=== PATIENT | female | born 1985 | race Caucasian/White ===

== ENCOUNTER 2024-04-07 01:49 | Emergency (ER) | payer SELFPAY ==
--- NOTE | 2024-04-07 02:04 | ERPHSYRPT ---
- History of Present Illness Time Seen by Provider: 04/07/24 01:53 Historian: patient Exam Limitations: no limitations Physician History: For the past 3.5 hours pt has had constant lower mid chest pain/epigastric pain radiating to the back up to 8/10 in severity with nausea; denies vomiting & fever. Aspirin Treatment Today: 81 mg x 4, provided by ED Allergies/Adverse Reactions: amoxicillin Allergy (Mild, Verified 05/09/14 09:28) Hives Home Medications: No Reportable Medications [No Reported Medications] 04/07/24 [History] Hx Tetanus, Diphtheria Vaccination/Date Given: No Hx Influenza Vaccination/Date Given: No Hx Pneumococcal Vaccination/Date Given: No - Review of Systems Constitutional: No Fever Cardiac: Chest Pain Abdominal/Gastrointestinal: Abdominal Pain, Nausea, No Vomiting - Past Medical History Pertinent Past Medical History: No Neurological History: No Pertinent History ENT History: No Pertinent History Cardiac History: No Pertinent History Respiratory History: No Pertinent History Endocrine Medical History: No Pertinent History Musculoskeletal History: No Pertinent History GI Medical History: No Pertinent History History: No Pertinent History Psycho-Social History: No Pertinent History Female Reproductive Disorders: No Pertinent History - Past Surgical History Past Surgical History: Yes Neuro Surgical History: No Pertinent History Cardiac: No Pertinent History Respiratory: No Pertinent History Gastrointestinal: No Pertinent History Genitourinary: No Pertinent History Musculoskeletal: No Pertinent History Female Surgical History: Section Other Surgical History: ADNOIDS REMOVED - Social History Smoking Status: Light tobacco smoker How long have you smoked: na Exposure to second hand smoke: No Drug Use: none Patient Lives Alone: No - Nursing Vital Signs Nursing Vital Signs: Initial Vital Signs Temperature 98.2 F 04/07/24 01:57 Pulse Rate 101 H 04/07/24 01:57 Respiratory Rate 18 04/07/24 01:57 Blood Pressure 185/87 04/07/24 01:57 O2 Sat by Pulse Oximetry 95 04/07/24 01:57 Pain Scale Pain Intensity 5 - Physical Exam General Appearance: alert Eye Exam: PERRL/EOMI Ears, Nose, Throat Exam: TMs normal, pharynx normal Neck Exam: normal inspection Respiratory Exam: lungs clear Cardiovascular Exam: normal heart sounds Gastrointestinal/Abdomen Exam: normal bowel sounds Extremity Exam: No pedal edema Neurologic Exam: alert, cooperative Skin Exam: warm, dry SpO2 Interpretation: normal SpO2: 95 O2 Delivery: Room Air - Course EKG Interpreted by Me: RATE (110), Sinus Tach, NORMAL AXIS, Other (QTc = 456) - CT Exams Chest CT Interpretation: Tele-radiologist Report (Small calcified granuloma is noted in right lower lobe. Atelectassis noted involving right middle lobe. No other abnormality seen.) Abdomen/Pelvis CT Interpretation: Tele-radiologist Report (Tiny fat containing umbilical hernia. No other abnormality seen.) Ordered Tests: Active Orders 24 hr Category Date Time Status Education Managers STAT Care 04/07/24 02:03 Active EKG-ER Only STAT Care 04/07/24 02:00 Active EKG-ER Only STAT Care 04/07/24 04:53 Active IV Insertion STAT Care 04/07/24 02:00 Active ABDOMEN AND PELVIS W CONTRAST [CT] Stat Exams 04/07/24 02:00 Completed CHEST WITH CONTRAST [CT] Stat Exams 04/07/24 02:02 Completed AMYLASE Stat Lab 04/07/24 02:00 Completed CBC W DIFF Stat Lab 04/07/24 02:00 Completed CMP Stat Lab 04/07/24 02:00 Completed LIPASE Stat Lab 04/07/24 02:00 Completed MAGNESIUM Stat Lab 04/07/24 02:00 Completed TROPONIN Q4H Lab 04/07/24 02:00 Completed TROPONIN Q4H Lab 04/07/24 05:38 Completed TROPONIN Q4H Lab 04/07/24 10:15 Ordered UA W/RFX UR CULTURE Stat Lab 04/07/24 04:52 Completed Medication Summary Discontinued Medications Generic Name Dose Route Start Last Admin Trade Name Freq PRN Reason Stop Dose Admin Morphine Sulfate 2 mg 04/07/24 05:20 04/07/24 05:23 Morphine Sulfate 2 Mg/Ml Inj IV 04/07/24 05:21 2 mg STAT ONE Administration Morphine Sulfate Confirm 04/07/24 05:21 Morphine Sulfate 2 Mg/Ml Inj Administered 04/07/24 05:22 Dose 2 mg .ROUTE .STK-MED ONE Nitroglycerin 0.4 mg 04/07/24 02:02 04/07/24 02:11 Nitroglycerin 0.4 Mg (Ed) 0.4 Mg Tab.Subl SL 04/07/24 02:03 0.4 mg STAT ONE Administration Nitroglycerin Confirm 04/07/24 02:12 Nitroglycerin 0.4 Mg (Ed) 0.4 Mg Tab.Subl Administered 04/07/24 02:13 Dose 0.4 mg SL .STK-MED ONE Nitroglycerin Confirm 04/07/24 02:13 Nitroglycerin 0.4 Mg (Ed) 0.4 Mg Tab.Subl Administered 04/07/24 02:14 Dose 0.4 mg SL .STK-MED ONE Ondansetron HCl 4 mg 04/07/24 02:00 04/07/24 02:15 Ondansetron Hcl 4 Mg/2 Ml Vial IV 04/07/24 02:01 4 mg STAT ONE Administration Ondansetron HCl Confirm 04/07/24 02:10 Ondansetron Hcl 4 Mg/2 Ml Vial Administered 04/07/24 02:11 Dose 4 mg .ROUTE .STK-MED ONE Lab/Rad Data: Laboratory Result Diagrams 04/07/24 02:00 04/07/24 02:00 Laboratory Results 04/07/24 04/07/24 04/07/24 Range/Units 05:38 04:52 02:00 WBC (3.98-10.04) x10^3/uL RBC (3.93-5.22) x10^6/uL Hgb (11.2-15.7) g/dL Hct (34.1-44.9) % MCV (79.4-94.8) fL MCH (25.6-32.2) pg MCHC (32.2-35.5) g/dL RDW (11.7-14.4) % Plt Count (182-369) x10^3/uL MPV (9.4-12.3) fL Gran % (34.0-71.1) % Immature Gran % (Auto) (0.001-0.429) % Nucleat RBC Rel Count (0.00-0.2) % Eos # (Auto) (0.04-0.36) x10^3/uL Immature Gran # (Auto) (0.001-0.031) x10^3u/L Absolute Lymphs (auto) (1.18-3.74) x10^3/uL Absolute Monos (auto) (0.24-0.86) x10^3/uL Absolute Nucleated RBC (0.00-0.012) x10^3u/L Lymphocytes % (19.3-51.7) % Monocytes % (4.7-12.5) % Eosinophils % (0.7-5.8) % Basophils % (0.1-1.2) % Absolute Granulocytes (1.56-6.13) x10^3/uL Basophils # (0.01-0.08) x10^3/uL Sodium (135-145) mmol/L Potassium (3.5-5.1) mmol/L Chloride (98-107) mmol/L Carbon Dioxide (22-30) mmol/L Anion Gap (5-15) MEQ/L BUN (7-17) mg/dL Creatinine (0.52-1.04) mg/dL Estimated GFR ML/MIN Glucose (74-106) mg/dL Calcium (8.4-10.2) mg/dL Magnesium (1.6-2.3) mg/dL Total Bilirubin (0.2-1.3) mg/dL AST (14-36) U/L ALT (0-35) U/L Alkaline Phosphatase (38-126) U/L Troponin I < 0.012 < 0.012 (0.000-0.033) ng/mL Serum Total Protein (6.3-8.2) g/dL Albumin (3.5-5.0) g/dL Amylase (30-110) U/L Lipase (23-300) U/L Urine Color Yellow (Yellow) Urine Appearance Clear (Clear) Urine pH 7.5 (4.6-8.0) Ur Specific [place] 1.015 (1.005-1.030) Urine Protein Negative (Negative) Urine Glucose (UA) Negative (Negative) mg/dL Urine Ketones Negative (Negative) Urine Blood Small A (Negative) Urine Nitrite Negative (Negative) Urine Bilirubin Negative (Negative) Urine Urobilinogen 0.2 (0.2) mg/dL Ur Leukocyte Esterase Trace A (Negative) U Hyaline Cast (Auto) NONE SEEN (0-2) /LPF Urine Microscopic RBC 3-5 (0-5) /HPF Urine Microscopic WBC 3-5 (0-5) /HPF Ur Epithelial Cells Rare (None Seen) /HPF Urine Bacteria Rare A (None Seen) /HPF Urine Culture Reflexed NO (NO) 04/07/24 04/07/24 Range/Units 02:00 02:00 WBC 9.6 (3.98-10.04) x10^3/uL RBC 4.00 (3.93-5.22) x10^6/uL Hgb 10.7 L (11.2-15.7) g/dL Hct 33.6 L (34.1-44.9) % MCV 84.0 (79.4-94.8) fL MCH 26.8 (25.6-32.2) pg MCHC 31.8 L (32.2-35.5) g/dL RDW 14.9 H (11.7-14.4) % Plt Count 323 (182-369) x10^3/uL MPV 10.3 (9.4-12.3) fL Gran % 68.2 (34.0-71.1) % Immature Gran % (Auto) 0.3 (0.001-0.429) % Nucleat RBC Rel Count 0.0 (0.00-0.2) % Eos # (Auto) 0.16 (0.04-0.36) x10^3/uL Immature Gran # (Auto) 0.03 (0.001-0.031) x10^3u/L Absolute Lymphs (auto) 2.41 (1.18-3.74) x10^3/uL Absolute Monos (auto) 0.41 (0.24-0.86) x10^3/uL Absolute Nucleated RBC 0.00 (0.00-0.012) x10^3u/L Lymphocytes % 25.2 (19.3-51.7) % Monocytes % 4.3 L (4.7-12.5) % Eosinophils % 1.7 (0.7-5.8) % Basophils % 0.3 (0.1-1.2) % Absolute Granulocytes 6.53 H (1.56-6.13) x10^3/uL Basophils # 0.03 (0.01-0.08) x10^3/uL Sodium 138 (135-145) mmol/L Potassium 3.7 (3.5-5.1) mmol/L Chloride 103 (98-107) mmol/L Carbon Dioxide 26 (22-30) mmol/L Anion Gap 12.6 (5-15) MEQ/L BUN 11 (7-17) mg/dL Creatinine 0.61 (0.52-1.04) mg/dL Estimated GFR 115.8 ML/MIN Glucose 142 H (74-106) mg/dL Calcium 9.5 (8.4-10.2) mg/dL Magnesium 2.2 (1.6-2.3) mg/dL Total Bilirubin 0.20 (0.2-1.3) mg/dL AST 34 (14-36) U/L ALT 30 (0-35) U/L Alkaline Phosphatase 88 (38-126) U/L Troponin I (0.000-0.033) ng/mL Serum Total Protein 7.6 (6.3-8.2) g/dL Albumin 4.2 (3.5-5.0) g/dL Amylase 41 (30-110) U/L Lipase 91 (23-300) U/L Urine Color (Yellow) Urine Appearance (Clear) Urine pH (4.6-8.0) Ur Specific [place] (1.005-1.030) Urine Protein (Negative) Urine Glucose (UA) (Negative) mg/dL Urine Ketones (Negative) Urine Blood (Negative) Urine Nitrite (Negative) Urine Bilirubin (Negative) Urine Urobilinogen (0.2) mg/dL Ur Leukocyte Esterase (Negative) U Hyaline Cast (Auto) (0-2) /LPF Urine Microscopic RBC (0-5) /HPF Urine Microscopic WBC (0-5) /HPF Ur Epithelial Cells (None Seen) /HPF Urine Bacteria (None Seen) /HPF Urine Culture Reflexed (NO) - Progress Progress: improved Progress Note: 04/07/24 05:36 Repeat EKG @ 0529: rate=97, sinus rhythm, QTc = 445, normal axis. Counseled pt/family regarding: lab results, diagnosis, need for follow-up, rad results Medical Desision Making - Diagnostic Testing Diagnostic test were ordered, analyzed, and reviewed by me: Yes Radiological Interpretation: Teleradiologist Report - Departure Departure Disposition: Home Clinical Impression: Chest pain, Abdominal pain Condition: Stable Critical Care Time: No Referrals: HANY WELLER [Primary Care Provider] - Follow up/PCP as directed Instructions: Chest Pain (DC), Abdominal pain in adults - Discharge instructions Additional Instructions: Follow up with a primary care doctor today. Return to [facility] for an outpatient gallbladder ultrasound.
[2024-04-07] MEDS ORDERED: Zofran 4 MG/2 ML VIAL ONE (02:10)
[2024-04-07 02:11] VITALS: TEMP 98.2
[2024-04-07] MEDS: Nitrostat 0.4 MG (ED) SL ONE (02:11)
[2024-04-07] MEDS ORDERED: Nitrostat 0.4 MG (ED) SL ONE ×2 (02:12→02:13)
[2024-04-07] MEDS: Zofran 4 MG/2 ML VIAL IV ONE (02:15)
[2024-04-07 02:30] LABS: Absolute Neutrophil Ct (ANC) 6.53 x10^3/uL (1.56-6.13); BASOPHIL % 0.3 % (0.1-1.2); Basophil (Absolute #) 0.03 x10^3/uL (0.01-0.08); Eosinophil % 1.7 % (0.7-5.8); Eosinophil (Absolute #) 0.16 x10^3/uL (0.04-0.36); Hematocrit 33.6 % (34.1-44.9); Hemoglobin 10.7 g/dL (11.2-15.7); IMMATURE GRAN # 0.03 x10^3u/L (0.001-0.031); IMMATURE GRAN % 0.3 % (0.001-0.429); Lymphocyte (Absolute #) 2.41 x10^3/uL (1.18-3.74); Lymphocytes % 25.2 % (19.3-51.7); Mean Corpuscular Hemoglobin 26.8 pg (25.6-32.2); Mean Corpuscular Hgb Concent. 31.8 g/dL (32.2-35.5); Mean Platelet Volume 10.3 fL (9.4-12.3); Monocyte (Absolute #) 0.41 x10^3/uL (0.24-0.86); Monocytes % 4.3 % (4.7-12.5); Neutrophil % 68.2 % (34.0-71.1); Platelet Count 323 x10^3/uL (182-369); Red Cell Distribution Width 14.9 % (11.7-14.4); White Blood Count 9.6 x10^3/uL (3.98-10.04)
[2024-04-07 02:43] LABS: ALBUMIN 4.2 g/dL (3.5-5.0); ANION GAP 12.6 MEQ/L (5-15); BILIRUBIN,TOTAL 0.2 mg/dL (0.2-1.3); Calcium 9.5 mg/dL (8.4-10.2); Creatinine 1 0.61 mg/dL (0.52-1.04); EST GLOMERULAR FILTRATION RATE 115.8 ML/MIN; MAGNESIUM 2.2 mg/dL (1.6-2.3); Potassium 3.7 mmol/L (3.5-5.1); Total Protein 7.6 g/dL (6.3-8.2)
--- NOTE | 2024-04-07 03:48 | XRAY ---
CLINICAL HISTORY: chest pain COMPARISON: None. TECHNIQUE: Contiguous axial images were obtained from the neck base through the upper abdomen following intravenous administration of contrast material. If IV contrast material had not been administered, the likelihood of detecting abnormalities relevant to the patient's condition would have been substantially decreased. In addition, sagittal and coronal reconstructions were performed. CT scan was performed according to ALARA (as low as reasonable achievable). FINDINGS: Small calcified granuloma is noted in right lower lobe. Atelectasis noted involving right middle lobe. The Rest of lungs are clear, with no focal areas of consolidation. The central airways are patent. There are no pleural effusions. No pneumothorax is seen. No axillary, hilar, or mediastinal adenopathy is identified. The visualized thyroid is unremarkable. The heart, aorta, and pulmonary arteries are of normal size and configuration. No pericardial effusion is identified. Imaged portions of the upper abdomen are unremarkable. No aggressive appearing osseous lesions are identified. IMPRESSION: Small calcified granuloma is noted in right lower lobe. Atelectasis noted involving right middle lobe. No other abnormality seen. Electronically Signed by: Mj Peng MD. (04/07/2024 03:44:00 EST)
--- NOTE | 2024-04-07 03:48 | XRAY ---
CLINICAL HISTORY: epigastric pain COMPARISON: None. TECHNIQUE: Contiguous axial images were obtained from the level of the diaphragm to the pubic symphysis without and with intravenous contrast. Coronal and sagittal reconstructions were likewise performed and indicated to increase the sensitivity for detecting clinically relevant pathology. If IV contrast material had not been administered, the likelihood of detecting abnormalities relevant to the patient's condition would have been substantially decreased. CT scan was performed according to ALARA (as low as reasonable achievable). FINDINGS: The visualized lung bases are clear. The liver is normal in size and attenuation. No focal liver lesions are seen. There is no intra or extrahepatic biliary ductal dilatation. Hepatic vasculature is patent. The gallbladder is present. The spleen, pancreas, and adrenal glands are unremarkable. The kidneys are normal in size and attenuation. There is no hydronephrosis or perinephric fat stranding. No renal calculi or renal masses are identified. The ureters are normal in caliber and no ureteral calculi are seen. The bladder is normal in contour. Pelvic viscera are unremarkable. No focal or diffuse bowel wall thickening or evidence of bowel obstruction is identified. The appendix is visualized in the right lower quadrant and appears within normal limits. Abdominal and pelvic vasculature is patent. No adenopathy or fluid collections are seen. No aggressive appearing osseous lesions are identified. Tiny fat containing umbilical hernia. IMPRESSION: Tiny fat containing umbilical hernia. No other abnormality seen. Electronically Signed by: Mj Peng MD. (04/07/2024 03:44:46 EST)
[2024-04-07 04:57] VITALS: PULSE 97
[2024-04-07] MEDS ORDERED: MORPHINE SULFATE 2 MG INJ ONE (05:21)
[2024-04-07] MEDS: MORPHINE SULFATE 2 MG INJ IV ONE (05:23)
[2024-04-07 05:24] LABS: Appearance Clear (Clear); Bacteria Rare /HPF (None Seen); Bilirubin Negative (Negative); Epithelial Cells Rare /HPF (None Seen); Glucose, Urine Negative (Negative); Hyaline Casts NONE SEEN /LPF (0-2); Ketones Negative (Negative); Nitrite Negative (Negative); Ph 7.5 (4.6-8.0); Protein,Urine Dip Negative (Negative); Specific Gravity 1.015 (1.005-1.030); Urobilinogen 0.2 mg/dL (0.2)
[2024-04-07 05:25] LABS: Leukocyte Esterase Trace (Negative)
[2024-04-07 05:26] LABS: Blood Small (Negative)
[2024-04-07 06:36] VITALS: BP 123/70; RESP 18
[2024-04-07 06:56] VITALS: O2SAT 95
[2024-04-07] MEDS ORDERED: BABY ASPIRIN 81 MG CHEW ONE (07:00)
[2024-04-07] MEDS: BABY ASPIRIN 81 MG CHEW PO ONE (07:01)
== END 2024-04-07 07:35 | disposition home or self-care (01) ==
LOC: ED 01:49
DX: R07.9 Chest pain, unspecified (principal); R10.13 Epigastric pain; R11.0 Nausea
CPT/HCPCS: 36415; 71260; 74177; 80053; 81001; 82150; 83690; 83735; 84484; 85025; 93005; 93041; 96374; 96375; 99284; 99285; J2270; J2405; A9270-GY